=== PATIENT | male | born 1950 | race Caucasian/White ===

== ENCOUNTER 2017-02-17 11:37 | Outpatient (CLI) ==
--- NOTE | 2017-02-17 11:59 | DI ---
EXAM: Two-view chest EXAM: History of chronic obstructive pulmonary disease TECHNIQUE: Frontal and lateral views of the chest were obtained. Comparison 09/02/2015. FINDINGS: The heart is normal size. Lungs are clear. The previously noted nodular opacities have resolved. There is hyperinflation of the lungs and flattening of the hemidiaphragms. IMPRESSION: Chronic obstructive pulmonary disease. Otherwise no active cardiopulmonary disease.
== END 2017-02-17 11:38 | disposition home or self-care (01) ==
LOC: RAD 11:37
PROVIDERS: ATTEND Nurse Practitioner Family
DX: J44.9 Chronic obstructive pulmonary disease, unspecified (principal)

== ENCOUNTER 2018-02-18 09:22 | Outpatient (CLI) ==
--- NOTE | 2018-02-18 10:00 | DI ---
EXAM: Two views of the chest. History: Chronic obstructive pulmonary disease Comparison: Chest radiograph 02/17/2017, chest CT 11/19/2015 Findings: Heart size is normal. No focal consolidation. No appreciable pleural fluid and no pneumo thorax. Hyperinflation with increase in retrosternal clear space. No acute osseous abnormalities. Impression: No acute cardiopulmonary process. Chronic obstructive pulmonary disease. No change com pared to the prior study.
== END 2018-02-18 09:23 | disposition home or self-care (01) ==
LOC: RAD 09:22
PROVIDERS: ATTEND Nurse Practitioner Family
DX: J44.9 Chronic obstructive pulmonary disease, unspecified (principal); R63.0 Anorexia; R06.02 Shortness of breath; Z79.899 Other long term (current) drug therapy; Z12.5 Encounter for screening for malignant neoplasm of prostate
CPT/HCPCS: 36415; 80053; 80061; 81001; 85025

== ENCOUNTER 2018-05-20 11:43 | Outpatient (CLI) | payer OTHER | END 2018-05-20 11:44 | disposition home or self-care (01) | LOC: FCC-LAB 11:43 | PROVIDERS: ATTEND General Practice | DX: R82.90 Unspecified abnormal findings in urine (principal) | CPT/HCPCS: 81001 ==

== ENCOUNTER 2018-05-24 14:25 | Outpatient (CLI) | payer OTHER ==
--- NOTE | 2018-05-24 14:50 | DI ---
EXAM: Chest PA and lateral HISTORY: Chronic obstructive pulmonary disease, unspecified FINDINGS: The lungs remain clear since 02/18/2018. The lungs are hyperinflated. The aorta is ather osclerotic. The heart size is normal. The bones are intact. No pneumothorax or pleural effusions are detected. Calcified granulomas are stable in the right lung base. IMPRESSION: No acute cardiopulmonary disease. Emphysema in keeping with the patient's history chronic obstructive pulmonary disease. ASCVD and old granulomas disease.
== END 2018-05-24 14:26 | disposition home or self-care (01) ==
LOC: RAD 14:25
PROVIDERS: ATTEND General Practice
DX: J44.9 Chronic obstructive pulmonary disease, unspecified (principal)

== ENCOUNTER 2018-08-19 14:27 | Outpatient (CLI) | END 2018-08-19 14:28 | disposition home or self-care (01) | LOC: RHC-LAB 14:28 | PROVIDERS: ATTEND General Practice | DX: J44.9 Chronic obstructive pulmonary disease, unspecified (principal); Z79.899 Other long term (current) drug therapy | CPT/HCPCS: 36415; 80053; 80061; 81001; 85025 ==

== ENCOUNTER 2018-12-20 08:05 | Outpatient (CLI) | END 2018-12-20 08:06 | disposition home or self-care (01) | LOC: RHC-LAB 08:05 | PROVIDERS: ATTEND General Practice | DX: J44.9 Chronic obstructive pulmonary disease, unspecified (principal); Z79.899 Other long term (current) drug therapy | CPT/HCPCS: 36415; 80053; 80061; 81001; 85025 ==

== ENCOUNTER 2018-12-22 14:56 | Outpatient (CLI) ==
--- NOTE | 2018-12-22 15:28 | CT ---
EXAM: CT of the abdomen pelvis without contrast History: Mid abdominal pain. Comparison: CT abdomen pelvis 09/02/2015 Technique: Multiplanar CT images through the abdomen pelvis were obtained without the administration of IV contrast Findings: Subsegmental atelectasis seen within the lower lungs. Subacute or chronic compression def ormity involving the inferior endplate of L3 with about 15% loss of vertebral body height. Moderate to severe degenerative disc disease at L4-L5. Atherosclerotic vascular calcifications. Status post cholecystectomy. No focal liver or splenic les ions. No florecita peripancreatic inflammation. Adrenal glands are unremarkable. No renal stones and n o hydronephrosis. Stable small benign right renal cyst measuring 2 cm. There are no dilated loops o f bowel. No free air and no ascites. Moderate colonic stool. No bladder wall thickening. Prostate is not enlarged. No perirectal inflammation. Evaluation for lymph nodes is limited due to the lack of contrast administration. Impression: 1. No acute intra-abdominal or pelvic process identified within limitations of a noncontrast study. If symptoms persist, recommend IV contrast enhanced CT. 2. Stable simple right renal cyst. 3. Atherosclerotic vascular disease. 4. Subacute or chronic compression deformity involving the inferior endplate of L3. 5. Moderate to severe degenerative disc disease at L4-L5
== END 2018-12-22 14:57 | disposition home or self-care (01) ==
LOC: RAD 14:56
PROVIDERS: ATTEND General Practice
DX: R10.9 Unspecified abdominal pain (principal); Z79.899 Other long term (current) drug therapy; Z12.5 Encounter for screening for malignant neoplasm of prostate
CPT/HCPCS: 36415; 84443

== ENCOUNTER 2018-12-22 15:03 | Outpatient (CLI) | END 2018-12-22 15:04 | disposition home or self-care (01) | LOC: RHC-LAB 15:03 | PROVIDERS: ATTEND General Practice | DX: Z79.899 Other long term (current) drug therapy (principal); Z12.5 Encounter for screening for malignant neoplasm of prostate | CPT/HCPCS: 36415; 84443 ==

== ENCOUNTER 2019-01-09 09:51 | Outpatient (CLI) | END 2019-01-09 09:52 | disposition home or self-care (01) | LOC: RHC-LAB 09:51 | PROVIDERS: ATTEND General Practice | DX: S32.030A Wedge compression fracture of third lumbar vertebra, initial encounter for closed fracture (principal); M51.36 Other intervertebral disc degeneration, lumbar region; J44.9 Chronic obstructive pulmonary disease, unspecified; R25.2 Cramp and spasm; E78.5 Hyperlipidemia, unspecified | CPT/HCPCS: 36415; 84403 ==

== ENCOUNTER 2019-01-11 12:28 | Outpatient (CLI) ==
--- NOTE | 2019-01-11 15:23 | DEXA ---
EXAM: Bone densitometry. History: Compression fracture of the spine. Findings: Evaluation of the left hip reveals a total bone mineral density of 0.624 grams per centimeter squared with T-score of negative 3.3. Evaluation of the right hip reveals a total bone mineral density of 0.6438 grams per centimeter squar ed with T-score of negative 3.2. FRAX: 10-year probability for major osteoporotic fracture is 15.7% and 6.7% for hip fracture. Impression: Osteoporosis of bilateral hips
== END 2019-01-11 12:29 | disposition home or self-care (01) ==
LOC: RAD 12:28
PROVIDERS: ATTEND General Practice
DX: S32.030A Wedge compression fracture of third lumbar vertebra, initial encounter for closed fracture (principal); M51.36 Other intervertebral disc degeneration, lumbar region; J44.9 Chronic obstructive pulmonary disease, unspecified; R25.2 Cramp and spasm; E78.5 Hyperlipidemia, unspecified

== ENCOUNTER 2019-01-25 14:18 | Outpatient (CLI) | payer OTHER | END 2019-01-25 14:19 | disposition home or self-care (01) | LOC: RHC-LAB 14:18 | PROVIDERS: ATTEND General Practice | DX: M81.0 Age-related osteoporosis without current pathological fracture (principal); J44.9 Chronic obstructive pulmonary disease, unspecified; Z79.899 Other long term (current) drug therapy | CPT/HCPCS: 36415; 82306 ==